=== PATIENT | female | born 2005 | race Asian ===

== ENCOUNTER 2024-03-19 23:58 | Emergency (ER) | payer SELFPAY ==
[~2024-03-19] VITALS: Ht 160 cm; Wt 52.3 kg
[2024-03-20 00:12] VITALS: BP 103/69; PULSE 85; RESP 16; TEMP 98.1
== END 2024-03-20 01:20 | disposition home or self-care (01) ==
LOC: EMS 23:59
DX: T65.891A Toxic effect of other specified substances, accidental (unintentional), initial encounter (principal); Y92.89 Other specified places as the place of occurrence of the external cause
CPT/HCPCS: 99283; Z7502

== ENCOUNTER 2025-02-09 13:27 | Emergency (ER) | payer OTHER ==
[~2025-02-09] VITALS: Ht 162.6 cm; Wt 49.5 kg
[2025-02-09 13:36] VITALS: BP 104/69; PULSE 75; RESP 18; TEMP 98.5; O2SAT 98
[2025-02-09] MEDS: ACETAMINOPHEN 500 MG TABLET PO ONE (15:33)
[2025-02-09] MEDS: IBUPROFEN 600 MG TABLET PO ONE (15:34)
[2025-02-09] MEDS: METHOCARBAMOL 500 MG TABLET PO ONE (15:35)
[2025-02-09] MEDS ORDERED: METH-659 PO (16:06)
[2025-02-09] MEDS ORDERED: ACET-66 PO (16:06)
[2025-02-09] MEDS ORDERED: IBUP-1554 PO (16:06)
== END 2025-02-09 16:20 | disposition home or self-care (01) ==
LOC: EMS 13:30
DX: S23.3XXA Sprain of ligaments of thoracic spine, initial encounter (principal); F12.90 Cannabis use, unspecified, uncomplicated; V98.8XXA Other specified transport accidents, initial encounter; Y93.89 Activity, other specified; Y92.89 Other specified places as the place of occurrence of the external cause; Y99.8 Other external cause status
CPT/HCPCS: 99284; Z7502; Z7610